=== PATIENT | male | born 1970 | race Caucasian/White ===

== ENCOUNTER 2022-09-05 13:00 | Outpatient (RCR) | payer BC | END 2022-09-09 | disposition home or self-care (01) | PROVIDERS: ATTEND Physical Medicine & Rehabilitation | DX: G31.89 Other specified degenerative diseases of nervous system (principal); R13.12 Dysphagia, oropharyngeal phase; Z87.820 Personal history of traumatic brain injury ==

== ENCOUNTER 2022-09-17 09:39 | Outpatient (RCR) | payer BC | END 2022-10-09 | disposition home or self-care (01) | PROVIDERS: ATTEND Physical Medicine & Rehabilitation | DX: G31.89 Other specified degenerative diseases of nervous system (principal); R13.12 Dysphagia, oropharyngeal phase; I10 Essential (primary) hypertension; Z87.820 Personal history of traumatic brain injury ==